=== PATIENT | female | born 1980 | race American Indian/Alaskan Native ===

== ENCOUNTER 2016-09-26 13:54 | Emergency (ER) | payer MEDICARE ==
[2016-09-26 15:09] LABS: Hematocrit 24.9 % (30.3-42.9); Hemoglobin 7.7 gm/dl (10.1-14.3); Mean Corpuscular HGB Conc 31 % (30-34); Mean Corpuscular Hemoglobin 27 pg (28-32); Mean Corpuscular Volume 88 fl (79-97); Platelet Count 323 K/mm3 (140-440); Red Blood Count 2.81 M/mm3 (3.65-5.03); Red Cell Distribution Width 19.1 % (13.2-15.2); White Blood Count 18.3 K/mm3 (4.5-11.0)
[2016-09-26 15:22] LABS: Alanine Aminotransferase 19 units/L (7-56); Albumin/Globulin Ratio 0.4 %; Alkaline Phosphatase 625 units/L (35-129); Anion Gap 20 mmol/L; BUN/Creatinine Ratio 21.11; Bilirubin,Total 5.9 mg/dL (0.1-1.2); Blood Urea Nitrogen 19 mg/dL (7-17); Calcium 7.7 mg/dL (8.4-10.2); Carbon Dioxide 19 mmol/L (22-30); Chloride 100.4 mmol/L (98-107); Glucose 220 mg/dL (65-100); Lipase 17 units/L (13-60); Potassium 4.3 mmol/L (3.6-5.0); Sodium 135 mmol/L (137-145); Total Protein 7.3 g/dL (6.3-8.2)
[2016-09-26] MEDS ORDERED: MORPHINE IV ONE (15:53)
[2016-09-26] MEDS ORDERED: ZOFRAN IV ONE (15:53)
--- NOTE | 2016-09-26 16:02 | Emergency Department Report ---
ED Abdominal Pain HPI - General Chief Complaint: Abdominal Pain Stated Complaint: ABDOMINAL PAIN Time Seen by Provider: 09/26/16 15:24 Source: patient Mode of arrival: Stretcher Limitations: No Limitations - History of Present Illness Initial Comments: 23-year-old female presents emergency department complaining of abdominal pain. Patient is right upper quadrant sharp abdominal pain that radiates across her upper abdomen. Patient reports nausea with occasional vomiting. She denies fever or diarrhea. Patient states that she was discharged from [facility] [place] 2 days ago after being admitted for similar symptoms. She states she was not sent home with any pain medication. There are no other complaints. MD Complaint: abdominal pain -: Gradual, days(s) (2) Location: RUQ Radiation: LUQ, epigastric Migration to: no migration Severity: severe Severity scale (0 -10): 10 Quality: sharp Consistency: constant Improves With: nothing Worsens With: nothing Context: recent surgery/procedure Associated Symptoms: nausea, vomiting - Related Data Home Medications Medication Instructions Recorded Confirmed Last Taken Insulin NPH, Human [NovoLIN N] 20 units SC QAM 07/16/14 01/26/15 10/18/14 Insulin Regular, Human Inj 17 units SC BID 07/16/14 01/26/15 10/18/14 [NovoLIN R Inj] Topiramate 25 mg PO Q6HR PRN 08/14/14 01/26/15 10/18/14 Lisinopril 20 mg PO DAILY 08/23/14 01/26/15 10/19/14 Insulin NPH, Human [NovoLIN N] 40 units SQ QPM 09/02/14 01/26/15 10/18/14 30 units Carvedilol [Coreg] 25 mg PO BID 01/26/15 01/26/15 Unknown Furosemide [Lasix TAB] 40 mg PO QDAY 01/26/15 01/26/15 Unknown Spironolactone [Aldactone] 25 mg PO QDAY 01/26/15 01/26/15 Unknown Tizanidine HCl [Zanaflex] 4 mg PO QHS 01/26/15 01/26/15 Unknown oxyCODONE /ACETAMINOPHEN [Percocet 1 tab PO Q4HR PRN 01/26/15 01/26/15 Unknown 5/325 mg] Previous Rx's Medication Instructions Recorded Last Taken Type Multivitamin Tab [Multiple Vitamin 1 each PO QDAY #30 tablet 10/23/14 Unknown Rx TAB (Theragran)] Nitrofurantoin [place]/M-Cryst 100 mg PO Q12HR #14 capsule 01/27/15 Unknown Rx [Macrobid CAP] Ondansetron [Zofran ODT TAB] 8 mg PO Q8HR PRN #20 tab.rapdis 01/27/15 Unknown Rx Butalbit/Acetamin/Caff/Codeine 1 cap PO Q6HR PRN #25 cap 01/29/15 Unknown Rx [Fioricet/Codeine 43-796-79-30] Allergies Allergy/AdvReac Type Severity Reaction Status Date / Time acetaminophen [From Tylenol] AdvReac Vomiting Verified 01/26/15 21:21 ED Review of Systems ROS: Stated complaint: ABDOMINAL PAIN Other details as noted in HPI Comment: All other systems reviewed and negative Gastrointestinal: abdominal pain, nausea, vomiting ED Past Medical Hx - Past Medical History Previous Medical History?: Yes Hx Hypertension: Yes Hx Congestive Heart Failure: Yes (06/2014) Hx Diabetes: Yes Hx Arthritis: Yes Hx Headaches / Migraines: Yes (MIGRAINES) Hx Asthma: No Hx COPD: No Hx HIV: No Additional medical history: High Cholesterol, pancreatitis, liver failure - Surgical History Past Surgical History?: Yes Additional Surgical History: gastric bypass, multiple abd surgeries - Family History Family history: no significant - Social History Smoking Status: Current Every Day Smoker Substance Use Type: None - Medications Home Medications: Home Medications Medication Instructions Recorded Confirmed Last Taken Type Insulin NPH, Human [NovoLIN N] 20 units SC QAM 07/16/14 01/26/15 10/18/14 History Insulin Regular, Human Inj 17 units SC BID 07/16/14 01/26/15 10/18/14 History [NovoLIN R Inj] Topiramate 25 mg PO Q6HR PRN 08/14/14 01/26/15 10/18/14 History Lisinopril 20 mg PO DAILY 08/23/14 01/26/15 10/19/14 History Insulin NPH, Human [NovoLIN N] 40 units SQ QPM 09/02/14 01/26/15 10/18/14 History 30 units Multivitamin Tab [Multiple Vitamin 1 each PO QDAY #30 tablet 10/23/14 01/26/15 Unknown Rx TAB (Theragran)] Carvedilol [Coreg] 25 mg PO BID 01/26/15 01/26/15 Unknown History Furosemide [Lasix TAB] 40 mg PO QDAY 01/26/15 01/26/15 Unknown History Spironolactone [Aldactone] 25 mg PO QDAY 01/26/15 01/26/15 Unknown History Tizanidine HCl [Zanaflex] 4 mg PO QHS 01/26/15 01/26/15 Unknown History oxyCODONE /ACETAMINOPHEN [Percocet 1 tab PO Q4HR PRN 01/26/15 01/26/15 Unknown History 5/325 mg] Nitrofurantoin [place]/M-Cryst 100 mg PO Q12HR #14 capsule 01/27/15 Unknown Rx [Macrobid CAP] Ondansetron [Zofran ODT TAB] 8 mg PO Q8HR PRN #20 tab.rapdis 01/27/15 Unknown Rx Butalbit/Acetamin/Caff/Codeine 1 cap PO Q6HR PRN #25 cap 01/29/15 Unknown Rx [Fioricet/Codeine [id number]] ED Physical Exam - General Limitations: No Limitations General appearance: alert, in distress (moderate distress secondary to pain) - Head Head exam: Present: atraumatic, normocephalic - Eye Eye exam: Present: normal appearance, PERRL, EOMI - ENT ENT exam: Present: normal exam, normal orophraynx, mucous membranes moist - Neck Neck exam: Present: normal inspection, full ROM. Absent: tenderness - Respiratory Respiratory exam: Present: normal lung sounds bilaterally. Absent: respiratory distress - Cardiovascular Cardiovascular Exam: Present: normal rhythm, tachycardia, normal heart sounds - GI/Abdominal GI/Abdominal exam: Present: soft, distended, tenderness (moderate tenderness to palpation in the right upper quadrant and epigastric region), normal bowel sounds, other (biliary drain noted coming from the right upper quadrant. Insertion site appears unremarkable.). Absent: guarding, rebound - Extremities Exam Extremities exam: Present: normal inspection, full ROM. Absent: tenderness - Back Exam Back exam: Present: normal inspection, full ROM. Absent: tenderness - Neurological Exam Neurological exam: Present: alert, oriented X3. Absent: motor sensory deficit - Skin Skin exam: Present: warm, dry, intact ED Course Vital Signs 09/26/16 09/26/16 09/26/16 14:16 16:00 16:12 Temperature 97.6 F Pulse Rate 122 H Respiratory 20 18 Rate Blood Pressure 146/100 Blood Pressure 146/100 [Left] O2 Sat by Pulse 98 97 Oximetry 09/26/16 09/26/16 09/26/16 16:20 16:30 16:39 Temperature Pulse Rate Respiratory 20 Rate Blood Pressure Blood Pressure [Left] O2 Sat by Pulse 97 96 Oximetry 09/26/16 09/26/16 09/26/16 17:07 17:57 18:24 Temperature Pulse Rate Respiratory 18 18 16 Rate Blood Pressure Blood Pressure [Left] O2 Sat by Pulse Oximetry 09/26/16 09/26/16 18:25 18:30 Temperature Pulse Rate Respiratory Rate Blood Pressure 149/79 138/83 Blood Pressure [Left] O2 Sat by Pulse 91 94 Oximetry - Consultations Consultation #1: 09/26/16 16:06 I have spoken with Dr. Cabrera, surgery at [facility] [place]. Patient was recently admitted with severe pancreatitis with pseudocysts. And a ventral radiology placed a biliary drain due to persistently elevated bilirubin levels. He states that the patient's initial bilirubin level was over 13. He states after placement of the drain the level settled in the 5-6 range, but did not return to normal. Patient is being referred to hepatology at [place]. Current labs were reviewed and discussed with Dr. Cabrera. Plan is to provide pain relief and discharge the patient home to follow-up with this referral. Consultation #2: 09/26/16 19:23 After a total of 3 kg of Dilaudid and 6 mg of morphine, the patient is continuing to complain of persistent pain, only minimally improved. I have spoken with Dr. Cabrera again regarding this patient. He has accepted the patient in transfer at [facility]. Patient is currently awaiting transport. ED Medical Decision Making - Lab Data Result diagrams: 09/26/16 14:40 09/26/16 14:40 - Differential Diagnosis hepatitis, pancreatitis, cholecystitis, surgical complication Critical care attestation.: If time is entered above; I have spent that time in minutes in the direct care of this critically ill patient, excluding procedure time. ED Disposition Clinical Impression: Intractable abdominal pain Disposition: DC/TX SHORT-TERM GEN HOSP INPT Is pt being admited?: No Condition: Stable Instructions: Abdominal Pain (ED) Referrals: PRIMARY CARE, [Primary Care Provider] - 3-5 Days Time of Disposition: 19:24
[2016-09-26 16:20] LABS: Basophils % (Manual) 0 % (0.0-1.8); Blastocytes % (Manual) 0 %; Hypochromasia 2+
[2016-09-26 16:21] LABS: Anisocytosis 1+; Diff Status Complete; Large Platelets Few; Platelet Estimate Consistent w Auto; Poikilocytosis 1+; Polychromasia Few; Target Cells 1+
[2016-09-26] MEDS ORDERED: DILAUDID ONE (16:56)
[2016-09-26] MEDS ORDERED: DILAUDID IV ONE ×4 (16:59→22:12)
[2016-09-27] MEDS ORDERED: DILAUDID IV ONE (04:34)
[2016-09-27 08:43] LABS: Bacteria,Urine 1+ /HPF (Negative); Bilirubin,Urine SM (Negative); Blood,Urine MOD (Negative); Ketones,Urine TR mg/dL (Negative); Leukocyte Esterase,Urine MOD (Negative); Mucus,Urine FEW /HPF; Nitrite,Urine NEG (Negative)
[2016-09-27] MEDS ORDERED: PROTONIX IV ONE (09:10)
[2016-09-27] MEDS ORDERED: NACL ONE (09:27)
[2016-09-27 09:33] LABS: Hematocrit 23.2 % (30.3-42.9); Hemoglobin 7.2 gm/dl (10.1-14.3); Mean Corpuscular HGB Conc 31 % (30-34); Mean Corpuscular Hemoglobin 27 pg (28-32); Mean Corpuscular Volume 87 fl (79-97); Platelet Count 347 K/mm3 (140-440); Red Blood Count 2.67 M/mm3 (3.65-5.03); Red Cell Distribution Width 19.5 % (13.2-15.2); White Blood Count 15.5 K/mm3 (4.5-11.0)
[2016-09-27] MEDS: ZOSYN/NS 4.5GM/100ML 4.5 GM/100 ML VIAL IV SCH ×2 (09:40→17:28)
[2016-09-27 09:53] LABS: Magnesium 1.6 mg/dL (1.7-2.3)
[2016-09-27 09:55] LABS: Creatine Kinase MB 1.7 ng/mL (0.0-4.0)
[2016-09-27 09:57] LABS: INR 1.4 (0.87-1.13)
[2016-09-27 09:58] LABS: Partial Thromboplastin Time 36.4 Sec. (24.2-36.6)
[2016-09-27 09:58] LABS: Alanine Aminotransferase 16 units/L (7-56); Albumin 1.9 g/dL (3.9-5); Albumin/Globulin Ratio 0.4 %; Alkaline Phosphatase 538 units/L (35-129); Anion Gap 20 mmol/L; Bilirubin,Direct 3.9 mg/dL (0-0.2); Bilirubin,Indirect 1.2 mg/dL; Bilirubin,Total 5.1 mg/dL (0.1-1.2); Blood Urea Nitrogen 18 mg/dL (7-17); Calcium 7.6 mg/dL (8.4-10.2); Carbon Dioxide 20 mmol/L (22-30); Chloride 103.3 mmol/L (98-107); Creatine Kinase 17 units/L (30-135); Glucose 214 mg/dL (65-100); Potassium 4.4 mmol/L (3.6-5.0); Sodium 139 mmol/L (137-145)
--- NOTE | 2016-09-27 10:21 | XRay Report ---
AP CHEST : 09/27/16 CLINICAL: Chest pain. COMPARISON:None FINDINGS: Large body habitus and underexpansion of the lungs.The right hemidiaphragm is elevated. However, the lungs are clear. The heart and vasculature are normal for the degree of inspiration. The bones and soft tissues are unremarkable. IMPRESSION: Elevation of the right hemidiaphragm without identified etiology. No CHF or pneumonia.
--- NOTE | 2016-09-27 11:23 | Cat Scan Report ---
CT ABDOMEN AND PELVIS WITH CONTRAST: 09/26/16 13:54:00 CLINICAL: Right upper quadrant intractable pain with biliary drain. COMPARISON: 10/09/14 TECHNIQUE: Volumetric acquisition and 1.25 millimeter scan reconstructions after the uneventful intravenous injection of 100 cc Omnipaque 300. Consent was obtained prior to the administration of contrast. Oral contrast was not given. FINDINGS: Abdomen: The quality of the examination is degraded by large body habitus with abundant streak artifact and the examination is limited by the absence of bowel contrast.The liver is normal size and density. Moderate dilatation of left intrahepatic bile ducts. The right intrahepatic bile ducts are nondilated and the CBD is clearly well-demonstrated. A pigtail catheter is identified in the gallbladder fossa and the gallbladder has been removed. A collection of fluid lies medial to the catheter in the mikey hepatis. This collection measures approximately 7 cm in diameter. It appears to have at least a partially well-defined wall with enhancement and contains abnormal air suspicious for abscess. The anterior margin of the fluid collection is indistinct and air extends from the collection to the anterior abdominal wall. Some of this air is intraperitoneal. There may be a drain tract or fistula to the skin in the right upper quadrant which communicates with the suspicious fluid collection in the right upper quadrant. Status post gastric bypass. Additional fluid collections in the upper midabdomen are adjacent to the bypass stomach which is indistinguishable from these collections. The pancreas is also not well-demonstrated. The adrenal glands and kidneys are normal. The renal collecting systems and ureters are nondilated. The spleen is normal. There is a large volume of ascites and portions of the ascites have a thin enhancing wall. The small bowel is not well evaluated but appears largely to be nondilated. A right lower quadrant small bowel anastomosis is unremarkable. The colon is also not optimally evaluated but it is largely nondilated. Diffuse subcutaneous soft tissue edema. The aorta and inferior vena cava are unremarkable. Pelvis: Normal urinary bladder.There appears to be a uterus but is not well demonstrated. The rectum and sigmoid colon are unremarkable. There is a large volume of stool in the rectum and distal colon. Ovaries are not identified. Bone windows demonstrate no bone lesion. IMPRESSION:1. A 7 cm right upper quadrant fluid collection containing air is suspicious for an intra-abdominal abscess with a possible communicating enterocutaneous fistula. 2. Ascites with possible multiple walled off fluid collections which may be abscesses. These findings are suspicious for peritonitis. 3. Status post cholecystectomy with a drainage tube in the gallbladder fossa. A bile leak cannot be excluded as an etiology for the ascites. 4. Fluid collections adjacent to the pancreas are suspicious may be abscesses and acute pancreatitis cannot be excluded. 5. Ascites but otherwise negative pelvis.
[2016-09-27 11:57] LABS: Basophils % (Manual) 0 % (0.0-1.8); Blastocytes % (Manual) 0 %; Eosinophils % (Manual) 0 % (0.0-4.3)
[2016-09-27 11:58] LABS: Anisocytosis 1+
[2016-09-27 11:59] LABS: Hypochromasia 2+; Poikilocytosis 1+; Polychromasia Few; Target Cells 1+
[2016-09-27 12:00] LABS: Diff Status Complete
[2016-09-27] MEDS ORDERED: ZOSYN/NS 3.375GM/50ML 3.375 GM/50 ML BAG IV SCH (12:00)
[2016-09-27] MEDS ORDERED: VANCOMYCIN PHARMACY TO DOSE IV SCH (12:00)
--- NOTE | 2016-09-27 12:22 | Consultation ---
History of Present Illness Consult date: 09/27/16 Reason for consult: abdominal pain - History of present illness History of present illness: This is a very complex case, this is a 36 year old female s/p gastric bypass [address] Jody Blank at [facility], who developed jaundice and went to [facility] and was hospitalized 2 months, she is a very poor historian and no medical records are not available, she apparently had a cholecystectomy and developed pancreatitis and a gallbladder abcess. She has had 2? CT drainage procedures at [facility] and still has a drain in place. She also states she developed liver failure whole in the hospital. She presented to [facility] ER and arrangements were attempted to transfer patient to [facility] , no beds available at present. The patient has a WBC of 18K, elevated LFTs, total bili around 5 range,and elevated LFTs. the patient is jaundiced and Morbidly obese. She is hemodyn stable. Her CT of the abd and pelvis demonstrates a drain in the gallbladder fossa, normal hepatic ducts, not dialated. Changes consistent with pancreatitis. Past History Past Medical History: liver disease, other (?) Past Surgical History: cholecystectomy (complicated by gallbladder fossa abcess ; and pancreatitis, hx of gastric bypass), Other Medications and Allergies Allergies Allergy/AdvReac Type Severity Reaction Status Date / Time acetaminophen [From Tylenol] AdvReac Vomiting Verified 01/26/15 21:21 Home Medications Medication Instructions Recorded Confirmed Last Taken Type Insulin NPH, Human [NovoLIN N] 20 units SC QAM 07/16/14 01/26/15 10/18/14 History Insulin Regular, Human Inj 17 units SC BID 07/16/14 01/26/15 10/18/14 History [NovoLIN R Inj] Topiramate 25 mg PO Q6HR PRN 08/14/14 01/26/15 10/18/14 History Lisinopril 20 mg PO DAILY 08/23/14 01/26/15 10/19/14 History Insulin NPH, Human [NovoLIN N] 40 units SQ QPM 09/02/14 01/26/15 10/18/14 History 30 units Multivitamin Tab [Multiple Vitamin 1 each PO QDAY #30 tablet 10/23/14 01/26/15 Unknown Rx TAB (Theragran)] Carvedilol [Coreg] 25 mg PO BID 01/26/15 01/26/15 Unknown History Furosemide [Lasix TAB] 40 mg PO QDAY 01/26/15 01/26/15 Unknown History Spironolactone [Aldactone] 25 mg PO QDAY 01/26/15 01/26/15 Unknown History Tizanidine HCl [Zanaflex] 4 mg PO QHS 01/26/15 01/26/15 Unknown History oxyCODONE /ACETAMINOPHEN [Percocet 1 tab PO Q4HR PRN 01/26/15 01/26/15 Unknown History 5/325 mg] Nitrofurantoin [place]/M-Cryst 100 mg PO Q12HR #14 capsule 01/27/15 Unknown Rx [Macrobid CAP] Ondansetron [Zofran ODT TAB] 8 mg PO Q8HR PRN #20 tab.rapdis 01/27/15 Unknown Rx Butalbit/Acetamin/Caff/Codeine 1 cap PO Q6HR PRN #25 cap 01/29/15 Unknown Rx [Fioricet/Codeine [id number]] Active Meds: Active Medications Piperacillin Sod/Tazobactam Sod (Zosyn/Ns 4.5gm/100ml) 4.5 gm in 100 mls @ 200 mls/hr IV Q8HR GAURAV Last Admin: 09/27/16 09:40 Dose: 200 mls/hr Vancomycin HCl 1,250 mg/ (Sodium Chloride) 250 mls @ 166.667 mls/hr IV Q8H GAURAV Vancomycin HCl (Vancomycin Pharmacy To Dose) 1 each IV PKCONSULT AGURAV PRN Reason: Protocol Review of Systems - Constitutional other (abd pain right upper quadrant.) Exam Vital Signs Temp Pulse Resp BP Pulse Ox 97.6 F 122 H 22 146/100 98 09/26/16 14:16 09/26/16 14:16 09/26/16 14:16 09/26/16 14:16 09/26/16 14:16 - General physical appearance Positive: no distress - Eyes Positive: icteric - ENT Positive: normal pinna, normal nares, normal mucosa, no hearing loss, no congestion - Neck Positive: no masses, no bruits, trachea midline, no venous distension - Respiratory Positive: normal expansion, normal respiratory effort, clear to auscultation - Cardiovascular Rhythm: other (sinus tach) - Extremities Extremities: no ischemia Peripheral Pulses: within normal limits - Breasts Breasts: deferred - Abdomen Abdomen: Present: soft, bowel sounds normal, other (obese, drain in place, dressing dry and intact) - Neurologic Neurologic: alert and oriented to time, place and person, motor strength and sensation are grossly intact - Psychiatric Psychiatric: appropriate mood/affect, intact judgment & insight Results - Labs 09/27/16 09:11 09/27/16 09:11 Abnormal lab results 09/26/16 09/26/16 09/26/16 Range/Units 14:40 14:40 14:52 WBC 18.3 H (4.5-11.0) K/mm3 RBC 2.81 L (3.65-5.03) M/mm3 Hgb 7.7 L (10.1-14.3) gm/dl Hct 24.9 L (30.3-42.9) % MCH 27 L (28-32) pg RDW 19.1 H (13.2-15.2) % Seg Neuts % (Manual) (40.0-70.0) % Lymphocytes % (Manual) 8.0 L (13.4-35.0) % Seg Neutrophils # Man 11.9 H (1.8-7.7) K/mm3 Monocytes # (Manual) 1.1 H (0.0-0.8) K/mm3 PT (12.2-14.9) Sec. INR (0.87-1.13) Sodium 135 L (137-145) mmol/L Carbon Dioxide 19 L (22-30) mmol/L BUN 19 H (7-17) mg/dL Glucose 220 H (65-100) mg/dL Lactic Acid (0.7-2.0) mmol/L Calcium 7.7 L (8.4-10.2) mg/dL Magnesium (1.7-2.3) mg/dL Total Bilirubin 5.9 H (0.1-1.2) mg/dL Direct Bilirubin (0-0.2) mg/dL Alkaline Phosphatase 625 H (35-129) units/L Ammonia 86.0 H (25-60) umol/L Total Creatine Kinase (30-135) units/L CK-MB (CK-2) Rel Index (0-4) NT-Pro-B Natriuret Pep (0-450) pg/mL Albumin 2.0 L (3.9-5) g/dL Urine WBC (Auto) (0.0-6.0) /HPF 09/27/16 09/27/16 09/27/16 Range/Units 08:10 09:11 09:11 WBC 15.5 H (4.5-11.0) K/mm3 RBC 2.67 L (3.65-5.03) M/mm3 Hgb 7.2 L (10.1-14.3) gm/dl Hct 23.2 L (30.3-42.9) % MCH 27 L (28-32) pg RDW 19.5 H (13.2-15.2) % Seg Neuts % (Manual) 76.0 H (40.0-70.0) % Lymphocytes % (Manual) 8.0 L (13.4-35.0) % Seg Neutrophils # Man 11.8 H (1.8-7.7) K/mm3 Monocytes # (Manual) 0.9 H (0.0-0.8) K/mm3 PT (12.2-14.9) Sec. INR (0.87-1.13) Sodium (137-145) mmol/L Carbon Dioxide 20 L (22-30) mmol/L BUN 18 H (7-17) mg/dL Glucose 214 H (65-100) mg/dL Lactic Acid (0.7-2.0) mmol/L Calcium 7.6 L (8.4-10.2) mg/dL Magnesium (1.7-2.3) mg/dL Total Bilirubin 5.1 H (0.1-1.2) mg/dL Direct Bilirubin 3.9 H (0-0.2) mg/dL Alkaline Phosphatase 538 H (35-129) units/L Ammonia (25-60) umol/L Total Creatine Kinase 17 L (30-135) units/L CK-MB (CK-2) Rel Index 10.0 H (0-4) NT-Pro-B Natriuret Pep (0-450) pg/mL Albumin 1.9 L (3.9-5) g/dL Urine WBC (Auto) 21.0 H (0.0-6.0) /HPF 09/27/16 09/27/16 09/27/16 Range/Units 09:11 09:11 09:22 WBC (4.5-11.0) K/mm3 RBC (3.65-5.03) M/mm3 Hgb (10.1-14.3) gm/dl Hct (30.3-42.9) % MCH (28-32) pg RDW (13.2-15.2) % Seg Neuts % (Manual) (40.0-70.0) % Lymphocytes % (Manual) (13.4-35.0) % Seg Neutrophils # Man (1.8-7.7) K/mm3 Monocytes # (Manual) (0.0-0.8) K/mm3 PT (12.2-14.9) Sec. INR (0.87-1.13) Sodium (137-145) mmol/L Carbon Dioxide (22-30) mmol/L BUN (7-17) mg/dL Glucose (65-100) mg/dL Lactic Acid < 0.2 L (0.7-2.0) mmol/L Calcium (8.4-10.2) mg/dL Magnesium 1.6 L (1.7-2.3) mg/dL Total Bilirubin (0.1-1.2) mg/dL Direct Bilirubin (0-0.2) mg/dL Alkaline Phosphatase (35-129) units/L Ammonia 107.0 H (25-60) umol/L Total Creatine Kinase (30-135) units/L CK-MB (CK-2) Rel Index (0-4) NT-Pro-B Natriuret Pep 954.7 H (0-450) pg/mL Albumin (3.9-5) g/dL Urine WBC (Auto) (0.0-6.0) /HPF 09/27/16 Range/Units 09:36 WBC (4.5-11.0) K/mm3 RBC (3.65-5.03) M/mm3 Hgb (10.1-14.3) gm/dl Hct (30.3-42.9) % MCH (28-32) pg RDW (13.2-15.2) % Seg Neuts % (Manual) (40.0-70.0) % Lymphocytes % (Manual) (13.4-35.0) % Seg Neutrophils # Man (1.8-7.7) K/mm3 Monocytes # (Manual) (0.0-0.8) K/mm3 PT 17.1 H (12.2-14.9) Sec. INR 1.40 H (0.87-1.13) Sodium (137-145) mmol/L Carbon Dioxide (22-30) mmol/L BUN (7-17) mg/dL Glucose (65-100) mg/dL Lactic Acid (0.7-2.0) mmol/L Calcium (8.4-10.2) mg/dL Magnesium (1.7-2.3) mg/dL Total Bilirubin (0.1-1.2) mg/dL Direct Bilirubin (0-0.2) mg/dL Alkaline Phosphatase (35-129) units/L Ammonia (25-60) umol/L Total Creatine Kinase (30-135) units/L CK-MB (CK-2) Rel Index (0-4) NT-Pro-B Natriuret Pep (0-450) pg/mL Albumin (3.9-5) g/dL Urine WBC (Auto) (0.0-6.0) /HPF Diabetes panel 09/26/16 09/27/16 Range/Units 14:40 09:11 Sodium 135 L 139 (137-145) mmol/L Potassium 4.3 4.4 (3.6-5.0) mmol/L Chloride 100.4 103.3 (98-107) mmol/L Carbon Dioxide 19 L 20 L (22-30) mmol/L BUN 19 H 18 H (7-17) mg/dL Creatinine 0.9 0.9 (0.7-1.2) mg/dL Glucose 220 H 214 H (65-100) mg/dL Calcium 7.7 L 7.6 L (8.4-10.2) mg/dL AST 26 20 (5-40) units/L ALT 19 16 (7-56) units/L Alkaline Phosphatase 625 H 538 H (35-129) units/L Total Protein 7.3 7.0 (6.3-8.2) g/dL Albumin 2.0 L 1.9 L (3.9-5) g/dL Calcium panel 09/26/16 09/27/16 Range/Units 14:40 09:11 Calcium 7.7 L 7.6 L (8.4-10.2) mg/dL Albumin 2.0 L 1.9 L (3.9-5) g/dL Pituitary panel 09/26/16 09/27/16 Range/Units 14:40 09:11 Sodium 135 L 139 (137-145) mmol/L Potassium 4.3 4.4 (3.6-5.0) mmol/L Chloride 100.4 103.3 (98-107) mmol/L Carbon Dioxide 19 L 20 L (22-30) mmol/L BUN 19 H 18 H (7-17) mg/dL Creatinine 0.9 0.9 (0.7-1.2) mg/dL Glucose 220 H 214 H (65-100) mg/dL Calcium 7.7 L 7.6 L (8.4-10.2) mg/dL Adrenal panel 09/26/16 09/27/16 Range/Units 14:40 09:11 Sodium 135 L 139 (137-145) mmol/L Potassium 4.3 4.4 (3.6-5.0) mmol/L Chloride 100.4 103.3 (98-107) mmol/L Carbon Dioxide 19 L 20 L (22-30) mmol/L BUN 19 H 18 H (7-17) mg/dL Creatinine 0.9 0.9 (0.7-1.2) mg/dL Glucose 220 H 214 H (65-100) mg/dL Calcium 7.7 L 7.6 L (8.4-10.2) mg/dL Total Bilirubin 5.9 H 5.1 H (0.1-1.2) mg/dL AST 26 20 (5-40) units/L ALT 19 16 (7-56) units/L Alkaline Phosphatase 625 H 538 H (35-129) units/L Total Protein 7.3 7.0 (6.3-8.2) g/dL Albumin 2.0 L 1.9 L (3.9-5) g/dL Assessment and Plan this is a very complex case where multiple interventions and complications have occured after a prolonged hospitalization at [facility], (2 months), she has had prev gastric bypass,s/p[ lap heath complicated by gallbladder abcess, drain in place, question of fistulae?, liver failure with elevated NH4, This patient needs to be transfered back to [facility] or [place] if necessary. ([facility] is more appropriate since they know the patient and have done several procedures on her.) There is NO ROLE for IV narcotics!, there is no surgical emergency, but a chronic set of problems with no easy solutions. this pt should be transfered as soon as bed is available.
--- NOTE | 2016-09-27 13:51 | Emergency Department Report ---
ED General Adult HPI - General Chief complaint: Abdominal Pain Stated complaint: ABDOMINAL PAIN Time Seen by Provider: 09/26/16 15:24 Source: patient Mode of arrival: Stretcher Limitations: No Limitations - History of Present Illness Initial comments: I became aware of this patient this morning when I received a request for additional narcotic medication on this patient that is unknown to me. Apparently upon reviewing her records she was seen by Dr. Earl yesterday. Dr. Earl spoke to her surgeon at [facility] who accepted her in transfer. Parents tells me that there is no bed available. Apparently the patient is already received 6 mg of Dilaudid and 6 mg of morphine for her abdominal pain. The pain she tells me is in the right upper quadrant of her abdomen. She denies being on any chronic pain medication. She was recently discharged from the hospital. Apparently the patient was likely on chronic opioids. After this huge amount of narcotics she is still awake and alert. Surgical history as obtained by Dr. Darnell: "This is a very complex case, this is a 36 year old female s/p gastric bypass [address] Jody Blank at [facility], who developed jaundice and went to [facility] and was hospitalized 2 months, she is a very poor historian and no medical records are not available, she apparently had a cholecystectomy and developed pancreatitis and a gallbladder abcess. She has had 2? CT drainage procedures at [facility] and still has a drain in place. She also states she developed liver failure whole in the hospital. She presented to [facility] ER and arrangements were attempted to transfer patient to [facility] , no beds available at present. The patient has a WBC of 18K, elevated LFTs, total bili around 5 range,and elevated LFTs. the patient is jaundiced and Morbidly obese. She is hemodyn stable. Her CT of the abd and pelvis demonstrates a drain in the gallbladder fossa, normal hepatic ducts, not dialated. Changes consistent with pancreatitis." Upon reviewing the patient's prior workup she has leukocytosis and substantial anemia with hemoglobin of 7.7 and a white count greater than 18. She does also have bandemia. I do not note that she's had any imaging studies. Therefore she was given Protonix, Zosyn and IV fluids. A surgical consultation was obtained. -: month(s) Radiation: abdomen Quality: aching Consistency: constant Worsens with: none Associated Symptoms: denies other symptoms, nausea/vomiting Treatments Prior to Arrival: none - Related Data Home Medications Medication Instructions Recorded Confirmed Last Taken Insulin NPH, Human [NovoLIN N] 20 units SC QAM 07/16/14 01/26/15 10/18/14 Insulin Regular, Human Inj 17 units SC BID 07/16/14 01/26/15 10/18/14 [NovoLIN R Inj] Topiramate 25 mg PO Q6HR PRN 08/14/14 01/26/15 10/18/14 Lisinopril 20 mg PO DAILY 08/23/14 01/26/15 10/19/14 Insulin NPH, Human [NovoLIN N] 40 units SQ QPM 09/02/14 01/26/15 10/18/14 30 units Carvedilol [Coreg] 25 mg PO BID 01/26/15 01/26/15 Unknown Furosemide [Lasix TAB] 40 mg PO QDAY 01/26/15 01/26/15 Unknown Spironolactone [Aldactone] 25 mg PO QDAY 01/26/15 01/26/15 Unknown Tizanidine HCl [Zanaflex] 4 mg PO QHS 01/26/15 01/26/15 Unknown oxyCODONE /ACETAMINOPHEN [Percocet 1 tab PO Q4HR PRN 01/26/15 01/26/15 Unknown 5/325 mg] Previous Rx's Medication Instructions Recorded Last Taken Type Multivitamin Tab [Multiple Vitamin 1 each PO QDAY #30 tablet 10/23/14 Unknown Rx TAB (Theragran)] Nitrofurantoin [place]/M-Cryst 100 mg PO Q12HR #14 capsule 01/27/15 Unknown Rx [Macrobid CAP] Ondansetron [Zofran ODT TAB] 8 mg PO Q8HR PRN #20 tab.rapdis 01/27/15 Unknown Rx Butalbit/Acetamin/Caff/Codeine 1 cap PO Q6HR PRN #25 cap 01/29/15 Unknown Rx [Fioricet/Codeine 39-046-47-30] Allergies Allergy/AdvReac Type Severity Reaction Status Date / Time acetaminophen [From Tylenol] AdvReac Vomiting Verified 01/26/15 21:21 ED Review of Systems ROS: Stated complaint: ABDOMINAL PAIN Other details as noted in HPI Comment: Unobtainable due to pts medical conditions (patient is a very poor historian to denies fever or chills. She complains of right upper quadrant pain only to me at this point.) Gastrointestinal: abdominal pain, nausea, vomiting ED Past Medical Hx - Past Medical History Previous Medical History?: Yes Hx Hypertension: Yes Hx Congestive Heart Failure: Yes (06/2014) Hx Diabetes: Yes Hx Arthritis: Yes Hx Headaches / Migraines: Yes (MIGRAINES) Hx Asthma: No Hx COPD: No Hx HIV: No Additional medical history: High Cholesterol, pancreatitis, liver failure - Surgical History Past Surgical History?: Yes Additional Surgical History: gastric bypass, multiple abd surgeries - Social History Smoking Status: Current Every Day Smoker Substance Use Type: None - Medications Home Medications: Home Medications Medication Instructions Recorded Confirmed Last Taken Type Insulin NPH, Human [NovoLIN N] 20 units SC QAM 07/16/14 01/26/15 10/18/14 History Insulin Regular, Human Inj 17 units SC BID 07/16/14 01/26/15 10/18/14 History [NovoLIN R Inj] Topiramate 25 mg PO Q6HR PRN 08/14/14 01/26/15 10/18/14 History Lisinopril 20 mg PO DAILY 08/23/14 01/26/15 10/19/14 History Insulin NPH, Human [NovoLIN N] 40 units SQ QPM 09/02/14 01/26/15 10/18/14 History 30 units Multivitamin Tab [Multiple Vitamin 1 each PO QDAY #30 tablet 10/23/14 01/26/15 Unknown Rx TAB (Theragran)] Carvedilol [Coreg] 25 mg PO BID 01/26/15 01/26/15 Unknown History Furosemide [Lasix TAB] 40 mg PO QDAY 01/26/15 01/26/15 Unknown History Spironolactone [Aldactone] 25 mg PO QDAY 01/26/15 01/26/15 Unknown History Tizanidine HCl [Zanaflex] 4 mg PO QHS 01/26/15 01/26/15 Unknown History oxyCODONE /ACETAMINOPHEN [Percocet 1 tab PO Q4HR PRN 01/26/15 01/26/15 Unknown History 5/325 mg] Nitrofurantoin [place]/M-Cryst 100 mg PO Q12HR #14 capsule 01/27/15 Unknown Rx [Macrobid CAP] Ondansetron [Zofran ODT TAB] 8 mg PO Q8HR PRN #20 tab.rapdis 01/27/15 Unknown Rx Butalbit/Acetamin/Caff/Codeine 1 cap PO Q6HR PRN #25 cap 01/29/15 Unknown Rx [Fioricet/Codeine [id number]] ED Physical Exam - General Limitations: No Limitations General appearance: alert, in distress (moderate distress secondary to pain), obese - Head Head exam: Present: atraumatic - Eye Eye exam: Present: scleral icterus - ENT ENT exam: Present: normal exam - Neck Neck exam: Present: normal inspection - Respiratory Respiratory exam: Present: normal lung sounds bilaterally - Cardiovascular Cardiovascular Exam: Present: regular rate, normal rhythm. Absent: systolic murmur, diastolic murmur, rubs, gallop - GI/Abdominal GI/Abdominal exam: Present: soft, distended, tenderness (RUQ), other (erythema of the abdominal wall. No chapin purulent drainage. Induration. Biliary drain noted.). Absent: rebound, rigid, normal bowel sounds - Neurological Exam Neurological exam: Present: CN II-XII intact. Absent: motor sensory deficit - Psychiatric Psychiatric exam: Present: anxious, flat affect - Skin Skin exam: Present: erythema ED Course Vital Signs 09/26/16 09/26/16 09/26/16 14:16 16:00 16:12 Temperature 97.6 F Pulse Rate 122 H Respiratory 20 18 Rate Blood Pressure 146/100 Blood Pressure 146/100 [Left] O2 Sat by Pulse 98 97 Oximetry 09/26/16 09/26/16 09/26/16 16:20 16:30 16:39 Temperature Pulse Rate Respiratory 20 Rate Blood Pressure Blood Pressure [Left] O2 Sat by Pulse 97 96 Oximetry 09/26/16 09/26/16 09/26/16 17:07 17:57 18:24 Temperature Pulse Rate Respiratory 18 18 16 Rate Blood Pressure Blood Pressure [Left] O2 Sat by Pulse Oximetry 09/26/16 09/26/16 09/26/16 18:25 18:30 18:40 Temperature Pulse Rate Respiratory Rate Blood Pressure 149/79 138/83 138/83 Blood Pressure [Left] O2 Sat by Pulse 91 94 94 Oximetry 09/26/16 09/26/16 09/26/16 18:50 19:00 19:10 Temperature Pulse Rate Respiratory Rate Blood Pressure 142/91 138/84 138/84 Blood Pressure [Left] O2 Sat by Pulse 95 95 94 Oximetry 09/26/16 09/26/16 09/26/16 19:20 19:30 19:40 Temperature Pulse Rate Respiratory Rate Blood Pressure 142/89 153/80 142/89 Blood Pressure [Left] O2 Sat by Pulse 94 93 94 Oximetry 09/26/16 09/26/16 09/26/16 19:50 20:00 20:10 Temperature Pulse Rate Respiratory Rate Blood Pressure 133/63 133/63 153/80 Blood Pressure [Left] O2 Sat by Pulse 94 95 94 Oximetry 09/26/16 09/26/16 09/26/16 20:20 20:30 21:10 Temperature Pulse Rate 105 H Respiratory 36 H Rate Blood Pressure 153/80 153/80 127/63 Blood Pressure [Left] O2 Sat by Pulse 95 95 Oximetry 09/26/16 09/26/16 09/26/16 21:20 21:30 21:40 Temperature Pulse Rate 98 H 97 H Respiratory 18 22 19 Rate Blood Pressure 123/77 132/75 123/77 Blood Pressure [Left] O2 Sat by Pulse 99 98 98 Oximetry 09/26/16 09/26/16 09/26/16 21:50 22:00 22:10 Temperature Pulse Rate 96 H 95 H 97 H Respiratory 23 18 21 Rate Blood Pressure 125/72 117/65 117/65 Blood Pressure [Left] O2 Sat by Pulse 97 97 97 Oximetry 09/26/16 09/26/16 09/26/16 22:20 22:30 22:40 Temperature Pulse Rate 95 H 94 H 95 H Respiratory 17 17 17 Rate Blood Pressure 112/65 106/57 106/57 Blood Pressure [Left] O2 Sat by Pulse 96 96 96 Oximetry 09/26/16 09/26/16 09/26/16 22:50 23:00 23:10 Temperature Pulse Rate 93 H 97 H 92 H Respiratory 15 19 31 H Rate Blood Pressure 106/59 121/71 121/71 Blood Pressure [Left] O2 Sat by Pulse 95 86 95 Oximetry 09/26/16 09/26/16 09/26/16 23:20 23:30 23:40 Temperature Pulse Rate 94 H 93 H 93 H Respiratory 16 19 17 Rate Blood Pressure 111/61 110/62 110/62 Blood Pressure [Left] O2 Sat by Pulse 96 95 96 Oximetry 09/26/16 09/27/16 09/27/16 23:50 00:00 00:10 Temperature Pulse Rate 93 H 92 H 92 H Respiratory 18 16 17 Rate Blood Pressure 106/59 107/58 107/58 Blood Pressure [Left] O2 Sat by Pulse 96 96 96 Oximetry 09/27/16 09/27/16 09/27/16 00:14 00:20 00:30 Temperature Pulse Rate 92 H 92 H 93 H Respiratory 17 17 18 Rate Blood Pressure 107/58 108/60 111/62 Blood Pressure [Left] O2 Sat by Pulse 97 97 96 Oximetry 09/27/16 09/27/16 09/27/16 00:40 00:50 01:00 Temperature Pulse Rate 92 H 103 H 100 H Respiratory 17 28 H 18 Rate Blood Pressure 111/62 120/55 110/60 Blood Pressure [Left] O2 Sat by Pulse 97 99 98 Oximetry 09/27/16 09/27/16 09/27/16 01:34 01:40 01:50 Temperature Pulse Rate 105 H 103 H 98 H Respiratory 32 H 26 H 22 Rate Blood Pressure 129/74 129/74 127/74 Blood Pressure [Left] O2 Sat by Pulse 97 98 99 Oximetry 09/27/16 09/27/16 09/27/16 02:00 02:10 02:20 Temperature Pulse Rate 99 H 97 H 98 H Respiratory 23 15 20 Rate Blood Pressure 116/65 116/65 111/62 Blood Pressure [Left] O2 Sat by Pulse 98 97 96 Oximetry 09/27/16 09/27/16 09/27/16 02:30 02:40 02:50 Temperature Pulse Rate 98 H 96 H 98 H Respiratory 17 19 20 Rate Blood Pressure 108/63 108/63 108/61 Blood Pressure [Left] O2 Sat by Pulse 96 96 96 Oximetry 09/27/16 09/27/16 09/27/16 03:00 03:10 03:20 Temperature Pulse Rate 97 H 97 H 96 H Respiratory 22 20 19 Rate Blood Pressure 113/62 113/62 108/63 Blood Pressure [Left] O2 Sat by Pulse 96 96 96 Oximetry 09/27/16 09/27/16 09/27/16 03:30 03:40 03:50 Temperature Pulse Rate 96 H 101 H 96 H Respiratory 16 26 H 19 Rate Blood Pressure 113/64 113/64 134/69 Blood Pressure [Left] O2 Sat by Pulse 97 99 96 Oximetry 09/27/16 09/27/16 09/27/16 04:00 04:10 04:20 Temperature Pulse Rate 99 H 98 H 100 H Respiratory 20 24 29 H Rate Blood Pressure 106/54 106/54 117/60 Blood Pressure [Left] O2 Sat by Pulse 98 96 98 Oximetry 09/27/16 09/27/16 09/27/16 04:30 04:40 04:50 Temperature Pulse Rate 99 H 97 H 95 H Respiratory 23 23 20 Rate Blood Pressure 123/72 123/72 118/68 Blood Pressure [Left] O2 Sat by Pulse 98 96 94 Oximetry 09/27/16 09/27/16 09/27/16 05:00 05:10 05:20 Temperature Pulse Rate 95 H 94 H 95 H Respiratory 19 18 18 Rate Blood Pressure 114/64 114/64 108/63 Blood Pressure [Left] O2 Sat by Pulse 93 95 95 Oximetry 09/27/16 09/27/16 09/27/16 05:30 05:40 05:50 Temperature Pulse Rate 97 H 96 H 95 H Respiratory 21 17 16 Rate Blood Pressure 101/68 101/68 116/64 Blood Pressure [Left] O2 Sat by Pulse 95 94 95 Oximetry 09/27/16 09/27/16 09/27/16 06:00 07:10 09:23 Temperature 98.8 F Pulse Rate 96 H 92 H 100 H Respiratory 21 16 16 Rate Blood Pressure 117/69 Blood Pressure 112/65 118/75 [Left] O2 Sat by Pulse 95 100 100 Oximetry 09/27/16 09/27/16 09/27/16 11:08 12:00 13:20 Temperature 98.3 F 98.3 F Pulse Rate 101 H 105 H 107 H Respiratory 16 18 18 Rate Blood Pressure Blood Pressure 117/67 136/77 129/75 [Left] O2 Sat by Pulse 98 100 100 Oximetry - Reevaluation(s) Reevaluation #1: Seen by Dr. Darnell. He told me that the patient did not have anything that was acute and surgical. He is provided consultation. She was given Zosyn. Her CT showed substantial panniculitis upon my review and the consideration of the findings of the radiologist. I'm going to add vancomycin to her Zosyn. Her amylase is worsening. She does need treatment for her hyperammonemia. I will consult Dr. Geronimo of the hospitalist service. If we cannot transfer the patient she'll be admitted to the hospitalist service pending transfer to [facility] wanted bed will be available. I'll discuss transfusion with the hospitalist. 09/27/16 13:54 09/27/16 13:57 ED Medical Decision Making - Lab Data Result diagrams: 09/27/16 09:11 09/27/16 09:11 Laboratory Results - last 24 hr 09/26/16 09/26/16 09/26/16 14:40 14:40 14:52 WBC 18.3 H RBC 2.81 L Hgb 7.7 L Hct 24.9 L MCV 88 MCH 27 L MCHC 31 RDW 19.1 H Plt Count 323 Add Manual Diff Complete Total Counted 100 Seg Neuts % (Manual) 65.0 Band Neutrophils % 18.0 Lymphocytes % (Manual) 8.0 L Reactive Lymphs % (Man) 0 Monocytes % (Manual) 6.0 Eosinophils % (Manual) 1.0 Basophils % (Manual) 0 Metamyelocytes % 2.0 Myelocytes % 0 Promyelocytes % 0 Blast Cells % 0 Nucleated RBC % Not Reportable Seg Neutrophils # Man 11.9 H Band Neutrophils # 3.3 Lymphocytes # (Manual) 1.5 Abs React Lymphs (Man) 0.0 Monocytes # (Manual) 1.1 H Eosinophils # (Manual) 0.2 Basophils # (Manual) 0.0 Metamyelocytes # 0.4 Myelocytes # 0.0 Promyelocytes # 0.0 Blast Cells # 0.0 WBC Morphology Not Reportable Hypersegmented Neuts Not Reportable Hyposegmented Neuts Not Reportable Hypogranular Neuts Not Reportable Smudge Cells Not Reportable Toxic Granulation Not Reportable Toxic Vacuolation Not Reportable Dohle Bodies Not Reportable Pelger-Huet Anomaly Not Reportable Josep Rods Not Reportable Platelet Estimate Consistent w auto Clumped Platelets Not Reportable Plt Clumps, EDTA Not Reportable Large Platelets Few Giant Platelets Not Reportable Platelet Satelliting Not Reportable Plt Morphology Comment Not Reportable RBC Morphology Not Reportable Dimorphic RBCs Not Reportable Polychromasia Few Hypochromasia 2+ Poikilocytosis 1+ Anisocytosis 1+ Microcytosis Not Reportable Macrocytosis Not Reportable Spherocytes Not Reportable Pappenheimer Bodies Not Reportable Sickle Cells Not Reportable Target Cells 1+ Tear Drop Cells Not Reportable Ovalocytes Not Reportable Helmet Cells Not Reportable [place] Bodies Not Reportable [place] Rings Not Reportable Sally Cells Not Reportable Bite Cells Not Reportable Crenated Cell Not Reportable Elliptocytes Not Reportable Acanthocytes (Spur) Not Reportable Rouleaux Not Reportable Hemoglobin C Crystals Not Reportable Schistocytes Not Reportable Malaria parasites Not Reportable Win Bodies Not Reportable Hem Pathologist Commnt No PT INR APTT Sodium 135 L Potassium 4.3 Chloride 100.4 Carbon Dioxide 19 L Anion Gap 20 BUN 19 H Creatinine 0.9 Estimated GFR > 60 BUN/Creatinine Ratio 21.11 Glucose 220 H Lactic Acid Calcium 7.7 L Magnesium Total Bilirubin 5.9 H Direct Bilirubin Indirect Bilirubin AST 26 ALT 19 Alkaline Phosphatase 625 H Ammonia 86.0 H Total Creatine Kinase CK-MB (CK-2) CK-MB (CK-2) Rel Index NT-Pro-B Natriuret Pep Total Protein 7.3 Albumin 2.0 L Albumin/Globulin Ratio 0.4 Lipase 17 Urine Color Urine Turbidity Urine pH Ur Specific [place] Urine Protein Urine Glucose (UA) Urine Ketones Urine Blood Urine Nitrite Urine Bilirubin Urine Ictotest Urine Urobilinogen Ur Leukocyte Esterase Urine WBC (Auto) Urine RBC (Auto) U Epithel Cells (Auto) Urine Bacteria (Auto) Urine Mucus Blood Type Antibody Screen 09/27/16 09/27/16 09/27/16 08:10 09:11 09:11 WBC 15.5 H RBC 2.67 L Hgb 7.2 L Hct 23.2 L MCV 87 MCH 27 L MCHC 31 RDW 19.5 H Plt Count 347 Add Manual Diff Complete Total Counted 100 Seg Neuts % (Manual) 76.0 H Band Neutrophils % 9.0 Lymphocytes % (Manual) 8.0 L Reactive Lymphs % (Man) 0 Monocytes % (Manual) 6.0 Eosinophils % (Manual) 0 Basophils % (Manual) 0 Metamyelocytes % 1.0 Myelocytes % 0 Promyelocytes % 0 Blast Cells % 0 Nucleated RBC % Not Reportable Seg Neutrophils # Man 11.8 H Band Neutrophils # 1.4 Lymphocytes # (Manual) 1.2 Abs React Lymphs (Man) 0.0 Monocytes # (Manual) 0.9 H Eosinophils # (Manual) 0.0 Basophils # (Manual) 0.0 Metamyelocytes # 0.2 Myelocytes # 0.0 Promyelocytes # 0.0 Blast Cells # 0.0 WBC Morphology Not Reportable Hypersegmented Neuts Not Reportable Hyposegmented Neuts Not Reportable Hypogranular Neuts Not Reportable Smudge Cells Not Reportable Toxic Granulation Not Reportable Toxic Vacuolation Not Reportable Dohle Bodies Not Reportable Pelger-Huet Anomaly Not Reportable Josep Rods Not Reportable Platelet Estimate Not Reportable Clumped Platelets Not Reportable Plt Clumps, EDTA Not Reportable Large Platelets Not Reportable Giant Platelets Not Reportable Platelet Satelliting Not Reportable Plt Morphology Comment Not Reportable RBC Morphology Not Reportable Dimorphic RBCs Not Reportable Polychromasia Few Hypochromasia 2+ Poikilocytosis 1+ Anisocytosis 1+ Microcytosis Not Reportable Macrocytosis Not Reportable Spherocytes Not Reportable Pappenheimer Bodies Not Reportable Sickle Cells Not Reportable Target Cells 1+ Tear Drop Cells Not Reportable Ovalocytes Not Reportable Helmet Cells Not Reportable [place] Bodies Not Reportable [place] Rings Not Reportable Sally Cells Not Reportable Bite Cells Not Reportable Crenated Cell Not Reportable Elliptocytes Not Reportable Acanthocytes (Spur) Not Reportable Rouleaux Not Reportable Hemoglobin C Crystals Not Reportable Schistocytes Not Reportable Malaria parasites Not Reportable Win Bodies Not Reportable Hem Pathologist Commnt No PT INR APTT Sodium 139 Potassium 4.4 Chloride 103.3 Carbon Dioxide 20 L Anion Gap 20 BUN 18 H Creatinine 0.9 Estimated GFR > 60 BUN/Creatinine Ratio 20.00 Glucose 214 H Lactic Acid Calcium 7.6 L Magnesium Total Bilirubin 5.1 H Direct Bilirubin 3.9 H Indirect Bilirubin 1.2 AST 20 ALT 16 Alkaline Phosphatase 538 H Ammonia Total Creatine Kinase 17 L CK-MB (CK-2) 1.7 CK-MB (CK-2) Rel Index 10.0 H NT-Pro-B Natriuret Pep Total Protein 7.0 Albumin 1.9 L Albumin/Globulin Ratio 0.4 Lipase Urine Color Shania Urine Turbidity Cloudy Urine pH 5.0 Ur Specific [place] 1.019 Urine Protein 30 mg/dl Urine Glucose (UA) Neg Urine Ketones Tr Urine Blood Mod Urine Nitrite Neg Urine Bilirubin Sm Urine Ictotest Positive Urine Urobilinogen 4.0 Ur Leukocyte Esterase Mod Urine WBC (Auto) 21.0 H Urine RBC (Auto) 14.0 U Epithel Cells (Auto) 3.0 Urine Bacteria (Auto) 1+ Urine Mucus Few Blood Type Antibody Screen 09/27/16 09/27/16 09/27/16 09:11 09:11 09:20 WBC RBC Hgb Hct MCV MCH MCHC RDW Plt Count Add Manual Diff Total Counted Seg Neuts % (Manual) Band Neutrophils % Lymphocytes % (Manual) Reactive Lymphs % (Man) Monocytes % (Manual) Eosinophils % (Manual) Basophils % (Manual) Metamyelocytes % Myelocytes % Promyelocytes % Blast Cells % Nucleated RBC % Seg Neutrophils # Man Band Neutrophils # Lymphocytes # (Manual) Abs React Lymphs (Man) Monocytes # (Manual) Eosinophils # (Manual) Basophils # (Manual) Metamyelocytes # Myelocytes # Promyelocytes # Blast Cells # WBC Morphology Hypersegmented Neuts Hyposegmented Neuts Hypogranular Neuts Smudge Cells Toxic Granulation Toxic Vacuolation Dohle Bodies Pelger-Huet Anomaly Josep Rods Platelet Estimate Clumped Platelets Plt Clumps, EDTA Large Platelets Giant Platelets Platelet Satelliting Plt Morphology Comment RBC Morphology Dimorphic RBCs Polychromasia Hypochromasia Poikilocytosis Anisocytosis Microcytosis Macrocytosis Spherocytes Pappenheimer Bodies Sickle Cells Target Cells Tear Drop Cells Ovalocytes Helmet Cells [place] Bodies [place] Rings [place] Cells Bite Cells Crenated Cell Elliptocytes Acanthocytes (Spur) Rouleaux Hemoglobin C Crystals Schistocytes Malaria parasites Win Bodies Hem Pathologist Commnt PT INR APTT Sodium Potassium Chloride Carbon Dioxide Anion Gap BUN Creatinine Estimated GFR BUN/Creatinine Ratio Glucose Lactic Acid < 0.2 L Calcium Magnesium Total Bilirubin Direct Bilirubin Indirect Bilirubin AST ALT Alkaline Phosphatase Ammonia 107.0 H Total Creatine Kinase CK-MB (CK-2) CK-MB (CK-2) Rel Index NT-Pro-B Natriuret Pep Total Protein Albumin Albumin/Globulin Ratio Lipase Urine Color Urine Turbidity Urine pH Ur Specific [place] Urine Protein Urine Glucose (UA) Urine Ketones Urine Blood Urine Nitrite Urine Bilirubin Urine Ictotest Urine Urobilinogen Ur Leukocyte Esterase Urine WBC (Auto) Urine RBC (Auto) U Epithel Cells (Auto) Urine Bacteria (Auto) Urine Mucus Blood Type O POSITIVE Antibody Screen Negative 09/27/16 09/27/16 09:22 09:36 WBC RBC Hgb Hct MCV MCH MCHC RDW Plt Count Add Manual Diff Total Counted Seg Neuts % (Manual) Band Neutrophils % Lymphocytes % (Manual) Reactive Lymphs % (Man) Monocytes % (Manual) Eosinophils % (Manual) Basophils % (Manual) Metamyelocytes % Myelocytes % Promyelocytes % Blast Cells % Nucleated RBC % Seg Neutrophils # Man Band Neutrophils # Lymphocytes # (Manual) Abs React Lymphs (Man) Monocytes # (Manual) Eosinophils # (Manual) Basophils # (Manual) Metamyelocytes # Myelocytes # Promyelocytes # Blast Cells # WBC Morphology Hypersegmented Neuts Hyposegmented Neuts Hypogranular Neuts Smudge Cells Toxic Granulation Toxic Vacuolation Dohle Bodies Pelger-Huet Anomaly Josep Rods Platelet Estimate Clumped Platelets Plt Clumps, EDTA Large Platelets Giant Platelets Platelet Satelliting Plt Morphology Comment RBC Morphology Dimorphic RBCs Polychromasia Hypochromasia Poikilocytosis Anisocytosis Microcytosis Macrocytosis Spherocytes Pappenheimer Bodies Sickle Cells Target Cells Tear Drop Cells Ovalocytes Helmet Cells [place] Bodies [place] Rings Sally Cells Bite Cells Crenated Cell Elliptocytes Acanthocytes (Spur) Rouleaux Hemoglobin C Crystals Schistocytes Malaria parasites Win Bodies Hem Pathologist Commnt PT 17.1 H INR 1.40 H APTT 36.4 Sodium Potassium Chloride Carbon Dioxide Anion Gap BUN Creatinine Estimated GFR BUN/Creatinine Ratio Glucose Lactic Acid Calcium Magnesium 1.6 L Total Bilirubin Direct Bilirubin Indirect Bilirubin AST ALT Alkaline Phosphatase Ammonia Total Creatine Kinase CK-MB (CK-2) CK-MB (CK-2) Rel Index NT-Pro-B Natriuret Pep 954.7 H Total Protein Albumin Albumin/Globulin Ratio Lipase Urine Color Urine Turbidity Urine pH Ur Specific [place] Urine Protein Urine Glucose (UA) Urine Ketones Urine Blood Urine Nitrite Urine Bilirubin Urine Ictotest Urine Urobilinogen Ur Leukocyte Esterase Urine WBC (Auto) Urine RBC (Auto) U Epithel Cells (Auto) Urine Bacteria (Auto) Urine Mucus Blood Type Antibody Screen - EKG Data -: EKG Interpreted by Me EKG shows normal: sinus rhythm Rate: normal - EKG Data Interpretation: other (left bundle branch block and left axis) - Radiology Data Radiology results: report reviewed Critical care attestation.: If time is entered above; I have spent that time in minutes in the direct care of this critically ill patient, excluding procedure time. 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
[2016-09-27] MEDS ORDERED: VANCOMYCIN VIAL 1,250 MG in NACL 0.9% 250ML 250 ML IV SCH (14:00)
[2016-09-27] MEDS ORDERED: NACL 0.9% 500 ML 500 ML IV ONE (14:14)
--- NOTE | 2016-09-27 15:34 | Admit Criteria Form ---
Admission Criteria Documentation: ABDOMINAL PAIN Clinical Indications for Admission to Inpatient Care (Place 'X' for any and all applicable criteria): Admission is indicated for ANY ONE of the following(1)(2)(3)(4)(5): [X ]I. Inpatient admission required rather than observation care (Also use Abdominal Pain: Observation Care, as appropriate) because of ANY ONE of the following: [X ]a) Severe pain requiring acute inpatient management [ ]b) Identification of etiology/finding that requires inpatient care (eg, aortic dissection, free air) [ ]c) Absent bowel sounds with complete ileus(6) [ ]d) Suspected toxic megacolon [ ]e) Severe electrolyte abnormalities requiring inpatient care [ ]f) High fever or infection requiring inpatient admission as indicated by ANY ONE of following(7)(8): [ ] i) Appropriate outpatient or observational care antimicrobial treatment unavailable, not effective, or not feasible [ ] ii) Documented bacteremia [ ] iii) Temperature > 104.9 degrees F (oral) [ ] iv) T >103.1 F (oral) or < 96.8 F(rectal) that does not respond to all emergency treatment measures [ ]g) Signs of intestinal obstruction [B] [ ]h) Hemodynamic instability [ ]i) IV fluid to replace significant ongoing losses (greater than 3 L/m2 per day) (12)(13) [ ]j) Percutaneous or open drainage (eg, abscess, biliary tract ) procedures [ ]k) Parenteral nutrition regimen that must be implemented on inpatient basis [ ]l) Other condition,treatment or monitoring requiring inpatient admission. [ ]II. Peritoneal signs present [ ]III. Surgery needed that cannot be performed on an ambulatory basis. [ ]IV. Evaluation requires patient to not eat or drink for extended period ( eg, more than 24 hours). [ ]V. Contraindications and/or Inappropriate clinical situations for Observational Care in patients with abdominal pain, when ANY ONE of the following is required: [ ]a) Thorough evaluation is required to prevent catastrophic events due to delays in diagnosing (e.g.Mesenteric ischemia) 1,3 [ ]b) Patient with severe pathology or with chronic symptoms unlikely to improve in the ED stay (3) [ ]. General contraindications and/or Inappropriate clinical situations for Observational Care in patients with abdominal pain, when ANY ONE of the following is required: [ ]a) Prediction of prolongation of LOS based on ANY ONE of the following may be considered as a contraindication for observational care 2, 3, 4, 5, 6, 7, 8, 9, 10, 11 [ ]i) Age > 65 yrs. [ ]ii) Patient arriving by ambulance [ ]iii) Patient with high acuity [ ]iv) Patient requiring vital sign monitoring [ ]v) Patient on IV medication [ ]b) Systolic blood pressures 180mmHg 3,12 [ ]c) Patient with altered mental status including delirium and other alteration of consciousness, (3) [ ]d) Patient whose discharge disposition will be to a half-way home or rehabilitation home should not be managed in Emergency Department Observation Unit. CMS rule requires 3 days hospital stay before such placement.3,13 [ ]e) Patient with failure to thrive due to broad array of etiologies 3,16,17 [ ]f) Inability to ambulate 3,14 Extended stay beyond goal length of stay may be needed for(2)(3): [ ]a) Persistent abdominal pain with suspected intra-abdominal process [ ]b) Diagnosed condition requiring continued stay (e.g., pancreatitis, complicated diverticulitis) [ ]c) Surgery (e.g., colectomy) The original [facility] content created by [employer] has been revised. The portions of the content which have been revised are identified through the use of italic text or in bold, and [facility] has neither reviewed nor approved the modified material.All other unmodified content is copyright [facility]. Please see references footnoted in the original [facility] edition 2016 Admission Criteria Met: Yes
[2016-09-27] MEDS ORDERED: NACL 0.9% 500 ML 500 ML ONE (16:57)
[2016-09-27 18:19] VITALS: BP 144/85
== END 2016-09-27 18:30 | disposition admitted as inpatient to this hospital (09) ==
LOC: ED 13:54
DX: R10.13 Epigastric pain (principal); R10.11 Right upper quadrant pain; I10 Essential (primary) hypertension; E11.9 Type 2 diabetes mellitus without complications; M19.90 Unspecified osteoarthritis, unspecified site; G43.909 Migraine, unspecified, not intractable, without status migrainosus; E78.00 Pure hypercholesterolemia, unspecified; F17.200 Nicotine dependence, unspecified, uncomplicated; Z79.4 Long term (current) use of insulin
CPT/HCPCS: 36415; 36430; 71010; 74177; 80048; 80053; 80074; 81001; 82140; 82550; 82553; 82962; 83690; 83735; 83880; 85007; 85025; 85610; 85730; 86850; 86900; 86901; 86920; 87040; 93005; 93010; 96365; 96366; 96375; 96376; 99285; C9113; J1170; J2270; J2405; J2543; J3370; J7040; J7050; P9016; Q9967